=== PATIENT | female | born 1945 | race American Indian/Alaskan Native ===

== ENCOUNTER 2018-10-17 12:04 | Outpatient (CLI) | payer MEDICARE ==
[2018-10-17 13:11] LABS: Blood Urea Nitrogen 13 mg/dL (7-17)
--- NOTE | 2018-10-17 15:24 | Cat Scan Report ---
CT CHEST WITH AND WITHOUT CONTRAST: HISTORY: Right hilar mass. COMPARISON: none. TECHNIQUE: Helical CT in 1.25mm intervals following IV contrast. Sagittal and coronal reformatted images. FINDINGS: Thyroid gland: The left thyroid lobe is enlarged and heterogeneous systems with a unilateral goiter. The right thyroid lobe is normal. Tracheobronchial tree: Normal. Esophagus: Normal. Heart: Normal. Pericardium: Normal. Mediastinum: There is no evidence for hilar or mediastinal mass/adenopathy. The right hilum is slightly prominent which is secondary to confluence of vessels. Lung [place]: There are mild chronic interstitial changes in both lungs. Minimal paraseptal emphysematous changes are noted at the lung apices. No consolidation, nodule or mass. Pleural Spaces: Normal. Musculoskeletal: Intact. Mild thoracic spondylosis. IMPRESSION: Unilateral thyroid goiter on the left side. No suspicious mass or adenopathy in the chest. No right hilar lesion. Minimal emphysematous changes.
== END 2018-10-17 12:05 | disposition home or self-care (01) ==
LOC: CT 12:04
PROVIDERS: ATTEND Internal Medicine
DX: J43.9 Emphysema, unspecified (principal); E04.9 Nontoxic goiter, unspecified; M47.814 Spondylosis without myelopathy or radiculopathy, thoracic region
CPT/HCPCS: 36415; 71270; 82565; 84520; Q9967